=== PATIENT | female | born 1995 | race Caucasian/White ===

== ENCOUNTER 2019-07-10 14:30 | Outpatient (RCR) | payer OTHER | END 2019-07-13 | LOC: M PT 14:30 | PROVIDERS: ATTEND Physician Assistant | DX: Z51.89 Encounter for other specified aftercare (principal); M54.5 Low back pain ==

== ENCOUNTER 2019-07-30 13:45 | Outpatient (RCR) | payer OTHER | END 2019-08-12 | LOC: M PT 13:45 | PROVIDERS: ATTEND Internal Medicine | DX: Z51.89 Encounter for other specified aftercare (principal); M54.5 Low back pain ==

== ENCOUNTER → 2019-10-13 | Outpatient (REF) | payer OTHER ==
[2019-10-13 23:29] LABS: HIV 1&2 SCREEN CENTAUR NEGATIVE (NEGATIVE)
[2019-10-13 23:48] LABS: CHLAMYDIA DNA AMPLIFICATION NEGATIVE (NEGATIVE); GC DNA AMPLIFICATION NEGATIVE (NEGATIVE)
[2019-10-17 13:12] LABS: HSV-1 DNA Negative (Negative); HSV-2 DNA Negative (Negative)
== END ==
LOC: M LAB REF 22:07
PROVIDERS: ATTEND Physician Assistant Medical
DX: Z11.3 Encounter for screening for infections with a predominantly sexual mode of transmission (principal); N76.5 Ulceration of vagina

== ENCOUNTER → 2020-03-01 | Outpatient (CLI) | payer OTHER ==
--- NOTE | 2020-03-01 08:48 | REP ---
INDICATION: PELVIC PAIN COMPARISON: None. TECHNIQUE: Transabdominal pelvic ultrasound followed by transvaginal examination for better evaluation of the endometrium and adnexa with color Doppler evaluation of the ovaries. FINDINGS: Bladder is collapsed. Normal anteverted uterus measures 8.9 x 2.8 x 5.0 cm. The endometrial complex measures 3.0 mm thickness. IUD identified in central satisfactory position. Bilateral ovaries are normal in appearance and vascularity without evidence for torsion. Right ovary measures 2.4 x 1.9 x 1.9 cm; R I = 0.68. Left ovary measures 3.7 x 2.5 x 2.6 cm; R I = 0.59. No pelvic fluid or adnexal mass lesion IMPRESSION: Normal pelvic ultrasound. IUD in satisfactory position. <Electronically signed by Mode Conte > 03/01/20 [id number]
== END ==
LOC: M RAD 07:43
PROVIDERS: ATTEND Physician Assistant
DX: R10.2 Pelvic and perineal pain (principal); Z97.5 Presence of (intrauterine) contraceptive device

== ENCOUNTER → 2022-03-10 | Outpatient (REF) | payer BC | LOC: M SFHCPLAZ 12:21 | PROVIDERS: ATTEND Family Medicine | DX: Z00.00 Encounter for general adult medical examination without abnormal findings (principal); N89.8 Other specified noninflammatory disorders of vagina; B37.31 Acute candidiasis of vulva and vagina ==

== ENCOUNTER → 2022-03-10 | Outpatient (CLI) | payer BC ==
[2022-03-10 15:44] LABS: APPEARANCE, URINE MANUAL CLEAR (CLEAR); COLOR, URINE MANUAL YELLOW (YELLOW)
[2022-03-10 15:45] LABS: BILIRUBIN, URINE MANUAL NEGATIVE (NEGATIVE); BLOOD URINE MANUAL NEGATIVE (NEGATIVE); GLUCOSE, URINE (UA) MANUAL NEGATIVE (NEGATIVE); KETONE, URINE MANUAL NEGATIVE (NEGATIVE); LEUKOCYTE ESTERASE, URINE MAN NEGATIVE (NEGATIVE); NITRITE, URINE MANUAL NEGATIVE (NEGATIVE); PROTEIN, URINE MANUAL NEGATIVE (NEGATIVE); UROBILINOGEN, URINE MANUAL NORMAL (NORMAL)
[2022-03-10 15:58] LABS: BASO % 0.6 % (0.0-1.0); EOS # 0.1 10^3/uL (0.0-0.5); EOS % 1.4 % (0.0-3.0); HEMATOCRIT 42.5 % (36.0-47.0); HEMOGLOBIN 14.6 g/dl (12.0-15.5); LYMPH # 2.3 10^3/uL (1.5-5.0); LYMPH % 35.9 % (24.0-44.0); MEAN CORPUSCULAR HEMOGLOBIN 32.2 pg (27.0-33.0); MEAN CORPUSCULAR HGB CONC 34.4 g/dl (32.0-36.5); MEAN CORPUSCULAR VOLUME 93.8 fl (80.0-96.0); MONO # 0.7 10^3/uL (0.0-0.8); MONO % 10.8 % (2.0-8.0); NEUTROPHILS # 3.2 10^3/uL (1.5-8.5); NEUTROPHILS % 51.1 % (36.0-66.0); PLATELET COUNT, AUTOMATED 265 10^3/uL (150-450); RED BLOOD COUNT 4.53 10^6/uL (4.00-5.40); WHITE BLOOD COUNT 6.3 10^3/uL (4.0-10.0)
[2022-03-10 16:07] LABS: BLOOD UREA NITROGEN 10 MG/DL (9-23); CALCIUM LEVEL 9.5 MG/DL (8.5-10.1); CARBON DIOXIDE LEVEL 27 MMOL/L (20-31); CHLORIDE LEVEL 105 MMOL/L (98-107); CHOLESTEROL LEVEL 154 MG/DL (<200); CHOLESTEROL RISK RATIO 2.64 (<5); CREATININE FOR GFR 0.69 MG/DL (0.55-1.30); GLOMERULAR FILTRATION RATE > 60.0 (>60); GLUCOSE, FASTING 97 MG/DL (60-100); HDL CHOLESTEROL 58.2 MG/DL (>40); LDL CHOLESTEROL 86.4 MG/DL (<100); NON-HDL-C 96 MG/DL; POTASSIUM SERUM 4.5 MMOL/L (3.5-5.1); SODIUM LEVEL 139 MMOL/L (136-145); TRIGLYCERIDES LEVEL 47 MG/DL (<150)
[2022-03-10 16:21] LABS: HEPATITIS B SURFACE ANTIGEN NEGATIVE (NEGATIVE)
[2022-03-10 16:34] LABS: HIV 1&2 SCREEN CENTAUR NEGATIVE (NEGATIVE)
[2022-03-10 16:41] LABS: HEPATITIS B CORE ANTIBODY IGM NEGATIVE (NEGATIVE)
[2022-03-10 16:48] LABS: HEMOGLOBIN A1c 4.7 % (4.0-6.0)
[2022-03-10 17:27] LABS: GC DNA AMPLIFICATION NEGATIVE (NEGATIVE)
== END ==
LOC: M PLALAB 12:26
PROVIDERS: ATTEND Student in an Organized Health Care Education/Training Program
DX: Z00.00 Encounter for general adult medical examination without abnormal findings (principal); N89.8 Other specified noninflammatory disorders of vagina; B37.31 Acute candidiasis of vulva and vagina